=== PATIENT | female | born 1995 | race Two or more races ===

== ENCOUNTER 2022-03-31 11:42 | Emergency (ER) | payer OTHER ==
[~2022-03-31] VITALS: Ht 167.6 cm; Wt 95.5 kg
[2022-03-31 12:27] VITALS: BP 141/75
[2022-03-31] MEDS ORDERED: NAPR-56 PO (12:38)
[2022-03-31] MEDS ORDERED: CYCL-1 PO (12:38)
== END 2022-03-31 12:46 | disposition home or self-care (01) ==
LOC: ER 11:42
DX: M53.3 Sacrococcygeal disorders, not elsewhere classified (principal); V89.2XXA Person injured in unspecified motor-vehicle accident, traffic, initial encounter; Y93.89 Activity, other specified; Y92.89 Other specified places as the place of occurrence of the external cause; Y99.8 Other external cause status
CPT/HCPCS: 99283